=== PATIENT | male | born 1980 | race Caucasian/White ===

== ENCOUNTER 2019-11-19 12:53 | Emergency (ER) | payer SELFPAY ==
[~2019-11-19] VITALS: Ht 187 cm; Wt 80.0 kg
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
[2019-11-19 13:54] VITALS: BP 161/97
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
--- OUTSIDE RECORDS SUMMARY | 2019-11-19 14:39 | XMS REPORT ---
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 Unknown Non Drug Allergy Dec, Unknown SOCIAL HISTORY No smoking Hx information available PLAN OF CARE Activity Details Follow Up 4 Weeks Reason: Pending Test TSH Pending Test CBC w/o differential Pending Test Lipid Panel Pending Test CMP (Comprehensive Metabolic Panel) VITAL SIGNS Heart Rate 84 /min 2017-01-11 Respiratory Rate 18 /min 2017-01-11 Temperature 98.2 degrees Fahrenheit 2017-01-11 Oximetry 99 % 2017-01-11 BMI 29.07 kg/m2 2017-01-11 Height 75.5 in 2017-01-11 Weight 235.7 lbs 2017-01-11 Blood pressure systolic 120 mm Hg 2017-01-11 Blood pressure diastolic 86 mm Hg 2017-01-11 MEDICATIONS Medication Instructions Dosage Frequency Start Date End Date Duration S tatus Zoloft 100 MG Orally Once a day 1 tablet 24h Aug, 30 days Active Hydrocodone-Acetaminophen 5-325 MG Orally every 6 hrs 1 capsule as needed 6h Aug, Active HydrOXYzine HCl 25 MG Orally every 8 hrs 1 tablet as needed 8h Dec, 30 day(s) Active Ibuprofen 200 MG Orally every 6 hrs 1 tablet with food or milk as need ed 6h Active Tylenol 325 MG Orally every 6 hrs 2 tablets as needed 6h Active Zofran 8 MG Orally Once a day 1 tablet 24h A ctive RESULTS No Results PROCEDURES Procedure Date Ordered Related Diagnosis Body Site OFFICEOUTPATIENT VISIT EST OFFICE OR OT HER OUTPATIENT VISIT FOR THE EVALUATION AND MANAGEMENT OF AN ESTABLISHED PATIENT, WHICHREQUIRES AT LEAST 2 OF THESE 3 PRESTON COMPONENTS, AN EXPANDED PROBLEM FOCUSED HISTORY,AN EXPANDED PROBLEM FOCUSED EXAMINATION January 11, 2017 Outside Labs Self-Pay Patients Only January 11, 2017 IMMUNIZATIONS No Known Immunizations
== END 2019-11-19 13:56 | disposition home or self-care (01) ==
LOC: ER FS 12:56
DX: S16.1XXA Strain of muscle, fascia and tendon at neck level, initial encounter (principal); S29.019A Strain of muscle and tendon of unspecified wall of thorax, initial encounter; V49.40XA Driver injured in collision with unspecified motor vehicles in traffic accident, initial encounter
CPT/HCPCS: 71046; 72050; 72072